=== PATIENT | male | born 1960 | race Caucasian/White ===

== ENCOUNTER 2017-06-20 11:37 | Emergency (ER) | payer SELFPAY ==
[2017-06-20 11:51] VITALS: BP 130/79; PULSE 67; RESP 16; TEMP 97.5
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
[2017-06-20] MEDS ORDERED: KETOROLAC 60 MG/2 ML VIAL IM STA (13:37)
--- NOTE | 2017-06-20 13:55 | XR ---
EXAMINATION TYPE: XR shoulder complete RT DATE OF EXAM: 06/20/2017 COMPARISON: NONE HISTORY: Pain TECHNIQUE: Three views are submitted. FINDINGS: The osseous structures are intact. There is no acute fracture or dislocation. Arthropathy of the AC joint with diffuse osteopenia.. IMPRESSION: 1. No acute process.
--- NOTE | 2017-06-20 13:56 | XR ---
EXAMINATION TYPE: XR thoracic spine complete DATE OF EXAM: 06/20/2017 COMPARISON: NONE HISTORY: Pain Alignment is anatomic. There is no compression deformities. Hypertrophic and degenerative change of the vertebral column. Previous surgery involving the cervical spine region. IMPRESSION: 1. No acute abnormality.
== END 2017-06-20 14:09 | disposition home or self-care (01) ==
LOC: EC 11:37
DX: S16.1XXA Strain of muscle, fascia and tendon at neck level, initial encounter (principal); S49.91XA Unspecified injury of right shoulder and upper arm, initial encounter; Z91.041 Radiographic dye allergy status; V40.5XXA Car driver injured in collision with pedestrian or animal in traffic accident, initial encounter; Y92.410 Unspecified street and highway as the place of occurrence of the external cause
CPT/HCPCS: 72072; 73030; 72125; 70450; 99284; 96372; J1885; 96374